=== PATIENT | female | born 1950 | race Two or more races ===

== ENCOUNTER 2017-02-20 13:04 | Emergency (ER) | payer OTHER, SELFPAY ==
[~2017-02-20] VITALS: Ht 160 cm; Wt 81.0 kg
[2017-02-20] MEDS ORDERED: ONDANSETRON 2MG/ML, 2ML ONE (14:14)
[2017-02-20] MEDS ORDERED: MORPHINE SULFATE 4 MG/ML, 1ML ONE (14:14)
[2017-02-20] MEDS ORDERED: ONDANSETRON 2MG/ML, 2ML IVPush ONE (14:30)
[2017-02-20] MEDS ORDERED: SODIUM CHLORIDE 0.9% 1,000ML IVBOLUS ONE (14:30)
[2017-02-20] MEDS ORDERED: MORPHINE SULFATE 4 MG/ML, 1ML IVPush PRN (14:30)
[2017-02-20] MEDS ORDERED: SODIUM CHLORIDE FLUSH 10ML SYR IVF ONE (14:30)
[2017-02-20 14:43] LABS: ASPARTATE AMINO TRANSFERASE 38 U/L (15-37); BLOOD UREA NITROGEN 19 mg/dL (7-18)
[2017-02-20] MEDS ORDERED: OMNIPAQUE 350 MG/ML, 100ML BOTTLE ONE (15:29)
[2017-02-20 16:36] VITALS: BP 112/56
== END 2017-02-20 16:39 | disposition home or self-care (01) ==
LOC: ED 15:30
DX: K29.00 Acute gastritis without bleeding (principal); S30.1XXA Contusion of abdominal wall, initial encounter; W24.0XXA Contact with lifting devices, not elsewhere classified, initial encounter; Y93.89 Activity, other specified; Y99.8 Other external cause status; Y99.9 Unspecified external cause status; R10.32 Left lower quadrant pain
CPT/HCPCS: 36415; 74177; 80053; 81001; 83690; 85025; 87086; 87147; 96361; 96374; 96375; 99285; J2405; J7030; Q9967